=== PATIENT | male | born 1950 | race Caucasian/White ===

== ENCOUNTER → 2016-06-25 | Outpatient (CLI) | payer OTHER ==
--- NOTE | 2016-06-25 13:22 | DX ---
Chest, PA and Lateral, 3 views History: Cough x1 month, R05 Comparison: July 19, 2015 Findings: Lungs are clear, without infiltrate or consolidation. Heart size is normal. There is no ruddy nopathy or mass lesion. There is no pleural effusion. There is progressive degenerative spurring in t he low thoracic spine. Impression: No source for cough identified.
== END ==
LOC: BMCIMAGING 12:09
PROVIDERS: ATTEND Internal Medicine
DX: R05 Cough (principal)

== ENCOUNTER 2016-07-09 14:46 | Emergency (ER) | payer OTHER ==
[2016-07-09 14:57] VITALS: BP 190/109; PULSE 59; RESP 18; TEMP 97.5; O2SAT 96
[2016-07-09] MEDS ORDERED: TDAP ADULT 0.5 ML INJ (BOOSTRIX) IM ONE (15:12)
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
== END 2016-07-09 15:21 | disposition home or self-care (01) ==
DX: S80.12XA Contusion of left lower leg, initial encounter (principal); Z23 Encounter for immunization; Z79.82 Long term (current) use of aspirin; Z95.5 Presence of coronary angioplasty implant and graft; V89.2XXA Person injured in unspecified motor-vehicle accident, traffic, initial encounter; Y92.410 Unspecified street and highway as the place of occurrence of the external cause; Y93.89 Activity, other specified

== ENCOUNTER → 2017-07-11 | Outpatient (CLI) | payer OTHER | LOC: BMCIMAGING 08:55 | PROVIDERS: ATTEND Internal Medicine | DX: R05 Cough (principal); R50.9 Fever, unspecified ==